=== PATIENT | male | born 1945 | race Caucasian/White ===

== ENCOUNTER 2020-03-07 06:06 | Inpatient (IN) | payer MEDICARE, BC ==
[2020-03-07] VITALS (7 sets, daily range): BP systolic 125–143; BP diastolic 80–93; BMI 39.1
[~2020-03-07] VITALS: Ht 185.4 cm; Wt 134.3 kg
--- NOTE | ~2020-03-07 | EC ---
PATIENT:MARAH CAGE DATE OF SERVICE: 03/07/20 SEX: M MEDICAL RECORD: [id number] DATE OF : 47 LOCATION:D.M2 D.211 AGE OF PATIENT: 74 ADMISSION DATE: 03/07/20 REFERRING PHYSICIAN: INTERPRETING PHYSICIAN: JOSE JENKINS MD ECHOCARDIOGRAM REPORT ECHO CHARGES 4 ECHO COMPLETE Date: 03/07/20 CLINICAL DIAGNOSIS: CMP ECHOCARDIOGRAPHIC MEASUREMENTS (adult normal given) AC root (d.<3.7cm) 3.3 cm LV Septum d (<1.2 cm> 1.0 cm Valve Excursion 1.4 cm LV Septum (systole) 1.4 cm Left Atria (s.<4.0cm> 3.2 cm LVPW d(<1.2cm) 1.5 cm RV (d.<2.3cm) 4.2 cm LVPW (sytole) 1.8 cm LV diastole(<5.6CM) 8.0 cm MV E-F(>70mm/sec) cm LV systole 7.3 cm LVOT Diameter 2.2 cm MV exc.(>10mm) 2.1 cm Est.ejection fraction (50-75%) % DOPPLER: LVIT cm/sec A 48 cm/sec E 104 cm/sec LA cm/sec RVSP 18 mmHg LVOT 60 cm/sec AOP1/2T m/s Asc. Ao 178 cm/sec RVOT 57 cm/sec RA cm/sec PA 92 cm/sec AV Gradient Peak 12.6 mmHg AV Mean 8.1 mmHg AV Area 1.2 cm MV Gradient Peak 5.9 mmHg MV Mean 1.5 mmHg MV Area cm COMMENTS: Engineer Internship: [facility] Choir Leader: 3 Dr. Hankins TAPE# PACS Pericardial Effusion N DATE OF SERVICE: Adequate 2D, color-flow imaging, spectral Doppler, and M-Mode Borderline LVH. LV internal dimensions are motion. Wall motion is normal. EF is greater than or equal to 55%. Aortic valve is tricuspid. No evidence of stenosis by Doppler interrogation. Left atrium is normal at 3.2 cm. Mitral valve shows no prolapse. Trace MR. Right-sided chambers are grossly normal. Trace TR. ECHOCARDIOGRAM REPORT [id number] MARAH CAGE TRANSINT:[id number] Voice Confirmation ID: [id number] DOCUMENT ID: [id number] JOSE JENKINS MD CC: [id number] DICTATION DATE: 03/08/20 1302 METAL COATER OPERATOR: 03/08/20 1410 ADM IN [place] [id number] [place] [id number]
--- NOTE | ~2020-03-07 | CN ---
PATIENT NAME:MARAH CAGE MEDICAL RECORD: [id number] : 47 LOCATION:[facility] D.2118 ADMIT DATE: 03/07/20 ACCOUNT: [id number] CONSULTING PHYSICIAN: JOSE JENKINS MD REFERRING PHYSICIAN: HARJINDER WYNN MD DATE OF CONSULTATION: 03/07/2020 HISTORY OF PRESENT ILLNESS: A 74-year-old gentleman with a history of atrial fibrillation. By review his medications, this appears to be chronic. He is on DOAC as well as Cardizem and carvedilol. He says he has been told his heart does race occasionally. He has a history of dementia, so history is somewhat marginal. He has a history of hypertension, long-term smoking history. We are asked to see him concerning his cardiovascular status. PAST MEDICAL HISTORY: Includes; 1. History of hypertension. 2. Hyperlipidemia. 3. Chronic renal insufficiency. 4. Atrial fibrillation. ALLERGIES: Unknown. MEDICATIONS: Include Eliquis 2.5 b.i.d., carvedilol 12.5 b.i.d., diltiazem 240 every day, hydralazine 25 t.i.d., Xanax 0.25 p.r.n., furosemide 20 mg p.o. every day. SOCIAL HISTORY: Lives at [facility], smokes at least a pack a [employer] daily, this is since the age of 16. He is retired. By his report, he is able to take care of all his ADLs and nondrinker. REVIEW OF SYSTEMS: The patient reports easy bruising but reports no swollen glands. The patient reports no fever, no night sweats, no significant weight gain, no significant weight loss. No significant exercise tolerance. The patient reports no dry eyes, no irritation, no vision change. Patient reports no difficulty hearing and no ear pain. Patient reports no frequent nose bleeds or nose and sinus problems. Patient reports on arm pain on exertion. No shortness of breath while lying down. No history of heart murmur. Patient reports no cough, no wheezing or coughing up blood. Patient reports no abdominal pain, no vomiting. Normal appetite. No diarrhea and not vomiting blood. No nausea and no constipation. Patient reports no incontinence. No difficulty urinating. No hematuria. No increased frequency. Patient reports no muscle aches. No weakness, no arthralgias, no back pain. No swelling of the extremities. Patient reports no abnormal mole, no jaundice, no rashes. Reports no loss of consciousness. No weakness and no numbness. No seizures, dizziness, or headaches. The patient reports no depression, no sleep disturbance, feeling safe in a relationship and no alcohol abuse. Patient reports on fatigue. Reports no runny nose or sinus pressure. No itching, no hives, and no frequent sneezing. PHYSICAL EXAMINATION: GENERAL: Pleasant gentleman in no acute distress, appears stated age. VITAL SIGNS: Blood pressure 143/81, pulse 75 and irregular. HEENT: Normocephalic, atraumatic. NECK: No bruits noted. HEART: Irregular, rate is controlled. There is II/ systolic ejection murmur. CONSULT REPORT [id number] MARAH CAGE LUNGS: Fair air excursion, few expiratory wheezes. ABDOMEN: Soft, nontender. EXTREMITIES: Pulses are 2+, there is 1+ edema. DIAGNOSTIC DATA: EKG shows atrial fibrillation, underlying IVCD secondary to ST-T changes. IMPRESSION AND PLAN: Volume overload. This may be or simply rate related. However, we will check echocardiographic study to assess full left ventricular function, currently improved on medical therapy. We will follow with you. TRANSINT:[id number] Voice Confirmation ID: [id number] DOCUMENT ID: [id number] JOSE JENKINS MD CC: [id number] DICTATION DATE: 03/07/20 0840 PATTERN DEVELOPER: 03/07/20 1021 ADM IN [facility] [address] [place] [id number]
[2020-03-07] MEDS ORDERED: ELIQUIS2.5 MG PO (06:09)
[2020-03-07] MEDS ORDERED: COREG12.5 MG PO (06:09)
[2020-03-07] MEDS ORDERED: TORSEMIDE20 MG PO (06:09)
[2020-03-07] MEDS ORDERED: HYDRALAZINE HCL25 MG PO (06:10)
[2020-03-07] MEDS ORDERED: CARDIZEM LA240 MG PO (06:10)
[2020-03-07] MEDS ORDERED: XANAX0.25 MG PO (06:11)
--- NOTE | 2020-03-07 06:12 | NUR ---
contact information: Nicole [phone]
[2020-03-07 07:23] LABS: BASOPHILS 0.2 % (0-2); EOSINOPHILS 0.4 % (0-7); HEMATOCRIT 42.8 % (42.0-54.0); HEMOGLOBIN 13.2 g/dL (13.5-17.5); IMMATURE GRANULOCYTES 0.2 % (0-5); LYMPHOCYTES 13.7 % (15-50); MCH 28.4 pg (26.0-34.0); MCHC 30.8 g/dL (31.0-37.0); MEAN PLATELET VOLUME 11.2 fL (7.4-10.4); MONOCYTES 4.5 % (2-11); PLATELET COUNT 126 10x3/uL (130-400); RBC 4.65 10x6/uL (4.20-6.10); RDW 14.2 % (11.5-14.5); WBC 11.4 10x3/uL (4.8-10.8)
[2020-03-07 07:29] LABS: CALC OSMOLALITY 288 mosm/kg (275-300); CALCIUM 8.8 mg/dL (8.5-10.1); CARBON DIOXIDE 29.3 mmol/L (21.0-32.0); CHLORIDE - SERUM 104 mmol/L (98-107); CREATININE - SERUM 2.2 mg/dL (0.6-1.3); GLUCOSE 147 mg/dL (74-106); SODIUM 140 mmol/L (136-145); UREA NITROGEN 33 mg/dL (7-18); eGFR NON AFRICAN AMERICAN 31 mL/min (90-120)
--- NOTE | 2020-03-07 07:40 | NUR ---
BUMEX DRIP INFUSING AT 5 ML/H ON ADMIT TO FLOOR
[2020-03-07 07:44] LABS: ALBUMIN 3.4 g/dL (3.4-5.0); ALKALINE PHOSPHATASE 67 U/L (30-120); ALT (SGPT) 19 U/L (10-68); BILIRUBIN - TOTAL 0.64 mg/dL (0.2-1.3); CKMB 1.3 U/L (0.0-3.6); CREATINE KINASE 42 UL (21-232); PRO BNP 8719 pg/mL (0-125); TROPONIN-I < 0.017 ng/mL (0.000-0.060)
--- NOTE | 2020-03-07 07:56 | NUR ---
FAX RECEIVED FROM [facility] SHOWING TEST RESULTS: COVID-19 NEGATIVE. REPORTED TO DIANE ON ADMIT REPORT.
[2020-03-07 11:00] LABS: INR 1.12 (0.85-1.17); PROTIME 14.3 SECONDS (11.6-15.0)
--- NOTE | 2020-03-07 11:00 | NUR ---
URINE SPECIMEN COLLECTED AND TAKEN TO LAB.
[2020-03-07 11:20] LABS: MAGNESIUM - SERUM 2.2 mg/dL (1.8-2.4); THYROID STIMULATING HORMONE 1.25 uIU/mL (0.36-3.74)
[2020-03-07 11:46] LABS: BILIRUBIN NEGATIVE (NEGATIVE); KETONE NEGATIVE (NEGATIVE); NITRITE NEGATIVE (NEGATIVE); UROBILINOGEN NORMAL mg/dL (< 2)
[2020-03-07 11:50] LABS: BACTERIA FEW /HPF (NONE SEEN); EPITHELIAL CELLS RARE /hpf (0-5)
[2020-03-07 13:47] LABS: CKMB 1.4 U/L (0.0-3.6); CREATINE KINASE 42 UL (21-232); TROPONIN-I < 0.017 ng/mL (0.000-0.060)
--- NOTE | 2020-03-07 14:36 | NUR ---
HERI CHOE. REFUSED TO KEEP IN.
--- NOTE | 2020-03-07 19:37 | NUR ---
RECEIVED BEDSIDE REPORT. ROUNDING COMPLETE. PATIENT IS ALERT AND ORIENTED, RESTING COMFORTABLY IN BED. RESPIRATIONS ARE EVEN AND UNLABORED. NO S/S OF DISTRESS. NO C/O PAIN. CALL LIGHT WITHIN REACH. NEEDS MET.
[2020-03-08] VITALS (7 sets, daily range): BP systolic 110–160; BP diastolic 56–102; Ht 185.4 cm; Wt 134.3 kg
[2020-03-08 07:30] LABS: BASOPHILS 0.3 % (0-2); EOSINOPHILS 1.7 % (0-7); HEMATOCRIT 40.6 % (42.0-54.0); HEMOGLOBIN 12.7 g/dL (13.5-17.5); IMMATURE GRANULOCYTES 0.3 % (0-5); LYMPHOCYTES 18.5 % (15-50); MCH 28.7 pg (26.0-34.0); MCHC 31.3 g/dL (31.0-37.0); MCV 91.6 fL (80.0-100.0); MEAN PLATELET VOLUME 11.5 fL (7.4-10.4); MONOCYTES 8.1 % (2-11); NEUTROPHILS 71.1 % (40-80); PLATELET COUNT 122 10x3/uL (130-400); RBC 4.43 10x6/uL (4.20-6.10); RDW 14.1 % (11.5-14.5); WBC 9.5 10x3/uL (4.8-10.8)
[2020-03-08 07:34] LABS: ANION GAP 8.9 mmol/L (8-16); CALCIUM 8.8 mg/dL (8.5-10.1); CARBON DIOXIDE 31.7 mmol/L (21.0-32.0); POTASSIUM - SERUM 3.6 mmol/L (3.5-5.1)
--- NOTE | 2020-03-08 14:53 | NUR ---
02 SAT 95% ON RA.
--- NOTE | 2020-03-09 00:37 | NUR ---
EVELYNE WITH SOME CONFUSION NOTED AT TIMES. UP TO BATHROOM MULTABLE TIMES. REMOVED TELEMENTRY MULTABLE TIMES THIS SHIFT, REPLACED BY STAFF AND EDUCATED TO LEAVE ON TO HELP MONITOR HIS BRYANT, STATED OK. CALL LIGHT AND WATER IN REACH. CHECKED OFTEN FOR NEEDS AND SAFETY.
[2020-03-09 04:00] VITALS: BP 149/85
[2020-03-09 05:52] LABS: BASOPHILS 0.5 % (0-2); EOSINOPHILS 2.5 % (0-7); HEMATOCRIT 41.1 % (42.0-54.0); HEMOGLOBIN 13.3 g/dL (13.5-17.5); IMMATURE GRANULOCYTES 0.2 % (0-5); LYMPHOCYTES 26.1 % (15-50); MCH 29.4 pg (26.0-34.0); MCHC 32.4 g/dL (31.0-37.0); MCV 90.9 fL (80.0-100.0); MEAN PLATELET VOLUME 11.6 fL (7.4-10.4); MONOCYTES 8.1 % (2-11); NEUTROPHILS 62.6 % (40-80); PLATELET COUNT 125 10x3/uL (130-400); RBC 4.52 10x6/uL (4.20-6.10); RDW 14.1 % (11.5-14.5); WBC 8.8 10x3/uL (4.8-10.8)
[2020-03-09 06:00] LABS: ALBUMIN 3.3 g/dL (3.4-5.0); ANION GAP 10.4 mmol/L (8-16); BILIRUBIN - TOTAL 0.95 mg/dL (0.2-1.3); CALCIUM 8.8 mg/dL (8.5-10.1); CARBON DIOXIDE 31.8 mmol/L (21.0-32.0); CREATININE - SERUM 2.1 mg/dL (0.6-1.3); POTASSIUM - SERUM 3.2 mmol/L (3.5-5.1); PROTEIN - SERUM 7.8 g/dL (6.4-8.2)
--- NOTE | 2020-03-09 06:13 | NUR ---
POTASSIUM 3.2 THIS AM GAVE 40MEQ PER ORDERS RECHECK SET FOR 1015AM.
--- NOTE | 2020-03-09 09:42 | NUR ---
TELEMETRY CAF. HR 90. WILL CONT. TO MONITOR.
[2020-03-09 09:58] VITALS: BP 120/95
[2020-03-09] MEDS ORDERED: NICODERM CQ1 EAC2 TOPICAL (10:57)
--- NOTE | 2020-03-09 11:30 | NUR ---
IV AND TELEMETRY DCD. DC PLANS GIVEN. UNDERSTANDING VOICED. ESCORTED TO CAR BY W/C.
== END 2020-03-09 11:30 | disposition home or self-care (01) | DRG 291 ==
LOC: D.ER 06:06 → D.EDHOLD 07:17 → OBSVTIME 07:18 → D.M2 07:36
PROVIDERS: Emergency Medicine; Family Medicine; ADMIT Emergency Medicine; ATTEND Emergency Medicine
DX: I13.0 Hypertensive heart and chronic kidney disease with heart failure and stage 1 through stage 4 chronic kidney disease, or unspecified chronic kidney disease (principal); I50.33 Acute on chronic diastolic (congestive) heart failure; I48.92 Unspecified atrial flutter; I48.91 Unspecified atrial fibrillation; N18.9 Chronic kidney disease, unspecified; E11.22 Type 2 diabetes mellitus with diabetic chronic kidney disease; I25.10 Atherosclerotic heart disease of native coronary artery without angina pectoris; E78.5 Hyperlipidemia, unspecified